=== PATIENT | female | born 1940 | race Caucasian/White ===

== ENCOUNTER 2018-08-12 16:06 | Inpatient (IN) ==
--- NOTE | 2018-08-12 16:56 | Emergency Department Note ---
Disposition Clinical Impression: Atrial flutter with rapid ventricular response Atrial flutter Qualifiers: Atrial flutter type: unspecified Qualified Code(s): I48.92 - Unspecified atrial flutter Disposition: Admitted As Inpatient Condition: Fair Time of Disposition: 19:32 Arrhythmia/Palpitations HPI - General Chief Complaint: ED Arrhythmia/Palpitations Stated Complaint: CP Time Seen by Provider: 08/12/18 16:13 Source: patient, family Mode of arrival: ambulatory Limitations: no limitations Nursing Notes Reviewed: Yes Vital Signs Reviewed: Yes - History of Present Illness HPI Narrative: 77 yo female with PMHx of intermittant a flutter, diabetes, HTN and cancer presents to emergency department with the experience of palpitations and weakness. Patient was recently admitted and had a full cardiac workup done in May of this year for a first-time experience of atrial flutter. Patient was chemically cardioverted with Cardizem and has been taking 360 mg daily of Cardizem home. She recently returned from a trip to [place] and Friday began experiencing some palpitations and feeling generally weak and fatigued. She was afraid that she was in atrial flutter again. She called her cardiologis t and was told to come into the emergency department for further workup. Patient denies chest pain, shortness of breath, abdominal pain, nausea and vomiting. She has not had any increased leg swelling or leg pain. - Related Data Home Medications Medication Instructions Recorded Confirmed Aspirin [Lo-Dose Aspirin EC] 81 mg PO DAILY 12/29/15 05/28/18 Cholecalciferol (D-3) [Vitamin D] 5,000 unit PO SUWEFR 12/29/15 05/28/18 Multivitamin [Multivitamins] 1 each PO DAILY 12/29/15 05/28/18 Biotin 1 mg PO DAILY 05/17/18 05/28/18 [place]-3/Dha/Epa/Fish Oil [Fish Oil 1,000 mg PO DAILY 05/17/18 05/28/18 Conc 1,000 mg Softgel] metFORMIN [Glucophage] 500 mg PO 1800 05/17/18 05/28/18 Warfarin [Coumadin] 2.5 mg PO 1800 05/28/18 05/28/18 Previous Rx's Medication Instructions Recorded Diltiazem CD (24hr) [Cardizem CD] 240 mg PO DAILY #30 cap.er.24h 05/01/18 Allergies Allergy/AdvReac Type Severity Reaction Status Date / Time Sulfa (Sulfonamide Allergy Difficulty Verified 05/28/18 13:43 Antibiotics) Breathing tape AdvReac Rash Uncoded 05/28/18 13:43 All systems ED: reviewed and negative except as stated. Review of Systems: As Per HPI Constitutional: Reports: weakness. Denies: fever, chills Cardiovascular: Reports: palpitations. Denies: chest pain, dyspnea on exertion, orthopnea, edema Respiratory: Denies: cough, dyspnea, wheezes Gastrointestinal: Denies: abdominal pain, nausea, vomiting Musculoskeletal: Denies: back pain, neck pain Integumentary: Denies: rash Neurological: Denies: headache Endocrine: Reports: fatigue Past Medical History - Past Medical History Attestation: Yes The following information was validated with the patient. Source: patient Medical history: Reports: atrial fibrillation, cancer, diabetes, hypertension Surgical history: Reports: cholecystectomy, hysterectomy Psychiatric history: Reports: no psych history RIGHT OF WAY CUTTER history: Reports: no RIGHT OF WAY CUTTER history - Social History Smoking Status: Never smoker Smokeless Tobacco Status: No Alcohol use: Reports: none Drug use: Reports: none Physical Exam - General Limitations: no limitations General appearance: alert, in no apparent distress - Head Head exam: atraumatic, normocephalic - Eye Eye exam: Present: normal appearance, EOMI - ENT ENT exam: normal exam, normal oropharynx - Neck Neck exam: Present: normal inspection. Absent: tenderness - Chest Chest inspection: Present: normal inspection. Absent: tenderness, rash - Respiratory Respiratory exam: Present: normal lung sounds bilaterally. Absent: wheezes - Cardiovascular Cardiovascular exam: Present: normal rhythm, tachycardia - Abdominal Exam Abdominal exam: Present: soft, Non-Tender. Absent: distention, guarding, rebound, rigidity - Extremities Exam Extremities exam: Present: normal inspection, pedal edema (1+ pedal edema keara aterally which started after being placed on Cardizem and is unchanged). Absent: tenderness - Neurological Exam Neurological exam: Present: alert, oriented X3 - Psychiatric Psychiatric exam: Present: normal affect, normal mood - Skin Skin exam: Present: warm, dry, intact Course Vital Signs Temperature 98.2 F 08/12/18 16:23 Pulse Rate 96 08/12/18 16:23 Respiratory Rate 18 06/26/19 16:23 Blood Pressure 146/102 06/26/19 16:23 O2 Sat by Pulse Oximetry 100 08/12/18 16:23 Temperature 98.2 F 08/12/18 16:23 Pulse Rate 104 08/12/18 17:17 Respiratory Rate 14 08/12/18 17:17 Blood Pressure 136/79 08/12/18 17:17 O2 Sat by Pulse Oximetry 98 08/12/18 17:17 Oxygen Delivery Oxygen Delivery Room Air Arrhythmia/Palpitations - [facility] Narrative Medical decision making narrative: Patient presents with complaints of fatigue and palpitations and is in atrial flutter. We will obtain an EKG, basic labs, troponin, chest x-ray and give the patient a bolus of Cardizem. Since she does take Coumadin as a flutter we will also check PT/INR. Spoke with Dr. Guerin who states that it is unlikely that the patient will cardiovert all she is here and she will likely only be rate controlled. If she does cardiovert he states it is acceptable for her to be discharged home and to follow-up with cardiology outpatient. Assuming she does not cardiovert we should just attempt rate control and admitted to the hospital until she is able to convert on her own or they can start her on other medications such as labetalol 2 help her convert. Patient is in no acute distress at this time. An IV bolus of Cardizem will be ordered and the patient will then be started on a Cardizem drip. 1930 - patient's heart rate has not converted while being on the Cardizem drip. All other lab work and her chest x-ray are within normal limits. Patient has been accepted by the hospitalist for further management of her atrial flutter. Cardiology will be consulted. - Medical Records Medical records reviewed: Yes I reviewed the patient's medical records. - Lab Data Lab results reviewed: Yes I reviewed the patient's lab results. Result diagrams: 08/13/18 06:26 08/13/18 06:26 Lab Results 08/12/18 08/12/18 08/12/18 Range/Units 16:45 16:45 16:45 WBC 9.4 (4.3-11.1) K/mcL RBC 4.74 (3.82-4.97) M/mcL Hgb 13.5 (11.5-15.4) g/dL Hct 41.5 (35.3-44.9) % MCV 87.6 (83.0-100.0) fL MCH 28.5 (28.0-33.3) pg MCHC 32.5 (31.6-35.5) g/dL RDW 13.6 (11.5-14.5) % Plt Count 239 (140-400) K/mcL MPV 10.4 (9.4-12.4) fL Immature Gran % 0.3 (0-4) % Seg Neutrophils % 56.8 % Lymphocytes % 33.8 % Monocytes % 7.7 % Eosinophils % 0.8 % Basophils % 0.6 % Neutrophils # 5.4 (1.6-8.9) K/mcL Lymphocytes # 3.2 (0.6-4.6) K/mcL Monocytes # 0.7 (0.0-1.3) K/mcL Eosinophils # 0.1 (0.0-0.6) K/mcL Basophils # 0.1 (0.0-0.2) K/mcL PT (9.4-12.1) Seconds INR Sodium 138 (136-145) mEq/L Potassium 4.1 (3.5-5.1) mEq/L Chloride 102 (98-107) mEq/L Carbon Dioxide 24 (23-29) mEq/L BUN 19 (8-23) mg/dL Creatinine 0.86 (0.60-1.20) mg/dL Est GFR ( Amer) > 60 (> 60) Est GFR (Non-Af Amer) > 60 (> 60) BUN/Creatinine Ratio 22 (6-26) Glucose 182 H (70-105) mg/dL Calculated Osmolality 293 (280-300) Calcium 9.6 (8.6-10.3) mg/dL Magnesium 1.9 (1.6-2.6) mg/dL Troponin I < 0.03 (< 0.04) ng/mL B-Natriuretic Peptide 65 (Less than 100) pg/mL TSH 1.991 (0.340-5.600) mcIU/mL 08/12/18 Range/Units 16:45 WBC (4.3-11.1) K/mcL RBC (3.82-4.97) M/mcL Hgb (11.5-15.4) g/dL Hct (35.3-44.9) % MCV (83.0-100.0) fL MCH (28.0-33.3) pg MCHC (31.6-35.5) g/dL RDW (11.5-14.5) % Plt Count (140-400) K/mcL MPV (9.4-12.4) fL Immature Gran % (0-4) % Seg Neutrophils % % Lymphocytes % % Monocytes % % Eosinophils % % Basophils % % Neutrophils # (1.6-8.9) K/mcL Lymphocytes # (0.6-4.6) K/mcL Monocytes # (0.0-1.3) K/mcL Eosinophils # (0.0-0.6) K/mcL Basophils # (0.0-0.2) K/mcL PT 21.2 H (9.4-12.1) Seconds INR 1.9 Sodium (136-145) mEq/L Potassium (3.5-5.1) mEq/L Chloride (98-107) mEq/L Carbon Dioxide (23-29) mEq/L BUN (8-23) mg/dL Creatinine (0.60-1.20) mg/dL Est GFR ( Amer) (> 60) Est GFR (Non-Af Amer) (> 60) BUN/Creatinine Ratio (6-26) Glucose (70-105) mg/dL Calculated Osmolality (280-300) Calcium (8.6-10.3) mg/dL Magnesium (1.6-2.6) mg/dL Troponin I (< 0.04) ng/mL B-Natriuretic Peptide (Less than 100) pg/mL TSH (0.340-5.600) mcIU/mL - Radiology Data Radiology results reviewed: Yes I reviewed the patient's radiology results. - EKG Data EKG attestation: Yes I reviewed and interpreted this EKG. EKG results narrative: EKG obtained at 16:18 on 08/12/2018 Heart rate 10 1 bpm, QRS duration 164, QTC 46, QTC 522 Atrial flutter in 3-1 block pattern. No signs of ST segment elevations. There are ST segment depressions which are likely secondary to the flutter waves. No other signs of acute abnormalities. Attestation Statement - Attestation Attestation: I have seen this patient with the resident physician, I have personally evaluated this patient. I had reviewed the chart and document dictation by the resident physician and aM in agreement with the information documented by the resident physician. Please see documentation by the resident physician for complete chart including past medical history, family medical history, review of systems, current history and physical and laboratory and imaging studies. I was present for all procedures, provided direct supervision for all procedures, was present for the entirety of all procedures and provided direct guidance during the procedures. Please see documentation by the resident physician for any procedures performed. I have reviewed all interpretations of EKGs, and reviewed all EKGs performed on patient's as well. I have also reviewed reports of imaging as provided by radiology.
--- NOTE | 2018-08-12 16:59 | Emergency Department Note ---
Disposition Clinical Impression: Atrial flutter, Atrial flutter with rapid ventricular response Disposition: Still a Patient Condition: Fair Forms: ED Satisfaction Letter Time of Disposition: 17:01 Arrhythmia/Palpitations HPI - General Chief Complaint: ED Arrhythmia/Palpitations Stated Complaint: CP Time Seen by Provider: 08/12/18 16:13 Source: patient, family Limitations: no limitations Nursing Notes Reviewed: Yes Vital Signs Reviewed: Yes - Related Data Home Medications Medication Instructions Recorded Confirmed Aspirin [Lo-Dose Aspirin EC] 81 mg PO DAILY 12/29/15 05/28/18 Cholecalciferol (D-3) [Vitamin D] 5,000 unit PO SUWEFR 12/29/15 05/28/18 Multivitamin [Multivitamins] 1 each PO DAILY 12/29/15 05/28/18 Biotin 1 mg PO DAILY 05/17/18 05/28/18 [place]-3/Dha/Epa/Fish Oil [Fish Oil 1,000 mg PO DAILY 05/17/18 05/28/18 Conc 1,000 mg Softgel] metFORMIN [Glucophage] 500 mg PO 1800 05/17/18 05/28/18 Warfarin [Coumadin] 2.5 mg PO 1800 05/28/18 05/28/18 Previous Rx's Medication Instructions Recorded Diltiazem CD (24hr) [Cardizem CD] 240 mg PO DAILY #30 cap.er.24h 05/01/18 Allergies Allergy/AdvReac Type Severity Reaction Status Date / Time Sulfa (Sulfonamide Allergy Difficulty Verified 05/28/18 13:43 Antibiotics) Breathing tape AdvReac Rash Uncoded 05/28/18 13:43 Past Medical History - Past Medical History Medical history: Reports: atrial fibrillation, cancer, diabetes, hypertension Surgical history: Reports: cholecystectomy, hysterectomy Psychiatric history: Reports: no psych history CANCER GENETICS ASSISTANT history: Reports: no CANCER GENETICS ASSISTANT history - Social History Smoking Status: Never smoker Smokeless Tobacco Status: No Alcohol use: Reports: none Drug use: Reports: none Physical Exam - General Limitations: no limitations General appearance: alert, in no apparent distress Course Vital Signs Temperature 98.2 F 08/12/18 16:23 Pulse Rate 96 08/12/18 16:23 Respiratory Rate 18 08/12/18 16:23 Blood Pressure 146/102 08/12/18 16:23 O2 Sat by Pulse Oximetry 100 08/12/18 16:23 Temperature 98.2 F 08/12/18 16:23 Pulse Rate 96 08/12/18 16:23 Respiratory Rate 18 08/12/18 16:23 Blood Pressure 146/102 08/12/18 16:23 O2 Sat by Pulse Oximetry 100 08/12/18 16:23 Oxygen Delivery Oxygen Delivery Room Air Attestation Statement - Attestation Attestation: I have seen this patient with the resident physician, I have personally evaluated this patient. I had reviewed the chart and document dictation by the resident physician and aM in agreement with the information documented by the resident physician. Please see documentation by the resident physician for complete chart including past medical history, family medical history, review of systems, current history and physical and laboratory and imaging studies. I was present for all procedures, provided direct supervision for all procedures, was present for the entirety of all procedures and provided direct guidance during the procedures. Please see documentation by the resident physician for any procedures performed. I have reviewed all interpretations of EKGs, and reviewed all EKGs performed on patient's as well. I have also reviewed reports of imaging as provided by radiology. Patient presented emergency department with chief complaint of palpitations and some exertional fatigue. The patient states this feels just like when she was admitted about 2 months ago with new diagnosis of atrial flutter. She states that she had received medications from outside facility that actually had c onverted her by the time she arrived at this facility 2 months ago she was admitted overnight, placed on oral medications, and has been doing well since that time although reports that she did have a little bit of bilateral lower extremity swelling which started after being laced on diltiazem, for which she was placed on Lasix. She states that the swelling is no different. She states that she was on vacation last week and things seemed okay when they came home on Friday she noticed that she was feeling some palpitations and just felt a little bit fatigued, she thought maybe she had just overdone it on vacation and was just tired but it continued over the weekend and she decided to come to the emergency department. She states she has maybe a little bit of discomfort in her chest but no pain no pressure no discomfort radiating to her left shoulder no diaphoresis, no shortness of breath no headache no neck pain or jaw pain no abdominal pain nausea vomiting or diarrhea. She is on Coumadin she has not noticed any black or bloody stool, no blood in her urine. No history of blood clots. She reports that her INR was last checked 2 weeks ago just prior to going on vacation which was therapeutic at that time. Upon presentation she is alert oriented 3 and in no acute distress, monitor and EKG confirms atrial flutter, heart rate ranging right around 100, with some variation up to 1:15 on the monitor. No evidence of ST elevation or ST depression there are some lateral T-wave inversions which is somewhat limited by the fact that there are flutter waves associated with this. But no evidence of acute ST segment elevation myocardial infarction, and EKG is a flutter, with heart rate of 101 on the EKG as interpreted by myself. Basic laboratory studies were ordered coags were ordered, cardiac enzymes were ordered. We contacted cardiology upon presentation as the patient is already anticoagulated, and wanted to discuss consideration of potential medications for chemical cardioversion, they requested that the patient be placed on diltiazem, if she happened to convert while on diltiazem IV, she could potentially be discharged home, however they feel the patient will likely require admission, and they will likely have to consider other medications for rhythm management as an inpatient. Patient has already had aspirin and Coumadin today. Diltiazem drip was initiated for rate control of atrial flutter although her heart rate but primarily was right around 105 even before this. Patient will be admitted pending workup here in the emergency department unless she happens to cardiovert.
[2018-08-12 17:14] LABS: Basophils # 0.1 K/mcL (0.0-0.2); Basophils % 0.6 %; Eosinophils # 0.1 K/mcL (0.0-0.6); Eosinophils % 0.8 %; Hematocrit 41.5 % (35.3-44.9); Hemoglobin 13.5 g/dL (11.5-15.4); Immature Granulocytes % 0.3 % (0-4); Lymphocytes # 3.2 K/mcL (0.6-4.6); Lymphocytes % 33.8 %; Mean Corpuscular HGB Conc 32.5 g/dL (31.6-35.5); Mean Corpuscular Hemoglobin 28.5 pg (28.0-33.3); Mean Corpuscular Volume 87.6 fL (83.0-100.0); Mean Platelet Volume 10.4 fL (9.4-12.4); Monocytes # 0.7 K/mcL (0.0-1.3); Monocytes % 7.7 %; Neutrophils # 5.4 K/mcL (1.6-8.9); Platelet Count 239 K/mcL (140-400); Red Blood Count 4.74 M/mcL (3.82-4.97); Red Cell Distribution Width 13.6 % (11.5-14.5); Segmented Neutrophils % 56.8 %; White Blood Count 9.4 K/mcL (4.3-11.1)
[2018-08-12 17:22] LABS: INR 1.9; Prothrombin Time 21.2 Seconds (9.4-12.1)
[2018-08-12 17:35] LABS: BUN/Creatinine Ratio 22 (6-26); Blood Urea Nitrogen 19 mg/dL (8-23); Calcium 9.6 mg/dL (8.6-10.3); Carbon Dioxide 24 mEq/L (23-29); Chloride 102 mEq/L (98-107); Glucose 182 mg/dL (70-105); Magnesium 1.9 mg/dL (1.6-2.6); Osmolality,Calculated 293 (280-300); Potassium 4.1 mEq/L (3.5-5.1); Sodium 138 mEq/L (136-145); Troponin I < 0.03 ng/mL (< 0.04); eGFR For African Americans > 60 (> 60); eGFR For Non-African Americans > 60 (> 60)
[2018-08-12 17:48] LABS: Thyroid Stimulating Hormone 1.991 mcIU/mL (0.340-5.600)
[2018-08-12] MEDS ORDERED: Naloxone 0.4 MG/ML INJ IVP PRN (20:51)
[2018-08-12] MEDS ORDERED: Dextrose Gel 15 GM/37.5 ML TUBE PO PRN ×2 (22:33)
[2018-08-12] MEDS ORDERED: *HR* Dextrose 50 % in Water (Syg) 50 ML SYRINGE IVP PRN (22:33)
[2018-08-12] MEDS ORDERED: D5% in Water 1,000 ML IVC PRN (22:33)
--- NOTE | 2018-08-12 22:33 | Internal Med History&Physical ---
Date of Encounter: 08/12/18 Time of Encounter: 20:31 Internal Medicine - H&P: HPI Chief complaint: Atrial flutter Admitted From: Emergency Dept Plans for Post Hospital Care: Home History of present illness: Ms. Schaffer is a 77 year old female Patient presented to the ER with palpitations and feeling weak for 4 days. She says that she was diagnosed with atrial flutter a few months ago at that time was started on diltiazem. She takes 360 mg daily. She is also started on warfarin at that time for anticoagulation. She had gone to [place] with her family and spent some time on the beach. On the return trip she began having some palpitations and feeling weak. She did notify her septic tank service technician to recommended she go to the emergency room for further workup. In the emergency room patient's initial vital signs: Temperature 98.2, pulse 96, respiratory rate 18, blood pressure 146/102, O2 saturation 100 CBC within normal limits BMP notable for glucose of 182. INR 1.9 Initial troponin undetectable BNP 65 TSH 1.991 Chest x-ray showed persistent opacification at the left lung base likely scarring. No acute abnormalities EKG: Heart rate [address] ischemic changes, QTC 522 Emergency department called septic tank service technician Dr. Brennan. He recommended rate controlling the patient. The patient received an IV bolus of Cardizem and was put on a Cardizem drip. She was admitted to the hospital for further management. Upon my evaluation, patient is resting comfortably in the ER bed in no acute dis tress. She denies chest pain, abdominal pain, nausea, vomiting, diarrhea, constipation, dizziness and vision changes. She does remain feeling somewhat weak however. She is a full code. Past Med Surg Social Fam HX - Past Medical History Medical history: atrial fibrillation, cancer, diabetes, hypertension Additional medical history: a flutter Psychiatric history: no psych history - Past Surgical History Surgical History: cholecystectomy, hysterectomy Additional surgical history: R masectomy; bladder sx, hernia repair - Social History Smoking Status: Never smoker Smokeless Tobacco Status: No Alcohol use: none Drug use: none - Family History Mother Living Status: Age at : 92 Hx Family Cardiac Disorders: Yes (htn, a fib) Hx Family Neurologic Disorders: Yes (cva) Father Living Status: Hx Family Cardiac Disorders: Yes (chf) Internal Medicine - H&P: Meds Aspirin [Lo-Dose Aspirin EC] 81 mg PO DAILY 12/29/15 [History] Cholecalciferol (D-3) [Vitamin D] 5,000 unit PO SUWEFR 12/29/15 [History] Multivitamin [Multivitamins] 1 each PO DAILY 12/29/15 [History] Diltiazem CD (24hr) [Cardizem CD] 240 mg PO DAILY #30 cap.er.24h 05/01/18 [Rx] Biotin 1 mg PO DAILY 05/17/18 [History] [place]-3/Dha/Epa/Fish Oil [Fish Oil Conc 1,000 mg Softgel] 1,000 mg PO DAILY 05/17/18 [History] metFORMIN [Glucophage] 500 mg PO 1800 05/17/18 [History] Warfarin [Coumadin] 2.5 mg PO 1800 05/28/18 [History] Allergy/AdvReac Type Severity Reaction Status Date / Time Sulfa (Sulfonamide Allergy Difficulty Verified 05/28/18 13:43 Antibiotics) Breathing tape AdvReac Rash Uncoded 05/28/18 13:43 All Systems PM: A 10-system review of systems was performed and is negative for pertinent findings except as documented above in the HPI. - Constitutional Vitals: Temp Pulse Resp BP Pulse Ox 97.9 F 106 17 155/82 96 08/12/18 21:10 08/12/18 21:10 08/12/18 21:10 08/12/18 21:10 08/12/18 21:10 General appearance: Present: cooperative, A&O X 3, pleasant, no acute distress, answers questions appropriately Exam: - - Head Head exam: Present: normal inspection - Eye Eye exam: Present: EOMI, normal appearance - Respiratory Respiratory exam: Present: CTAB. Absent: rales, respiratory distress, rhonchi, wheezes - Cardiovascular Cardiovascular exam: Present: irregular rhythm, tachycardia. Absent: diastolic murmur, systolic murmur - GI/Abdominal GI/Abdominal exam: Present: hernia, normal bowel sounds, soft. Absent: tenderness - Extremities Exam Extremities exam: Present: pedal edema, warm, radial pulses palpable and symmetrical. Absent: tenderness Additional comments: 2+ pitting edema bilaterally - Neurological Exam Neurological exam: Present: no focal deficits, strengths equal and symetr throughout. Absent: motor sensory deficit, facial droop, speech deficit - Skin Skin exam: Present: dry, normal color, warm Internal Med - H&P Results - Labs CBC & Chem 7: 08/12/18 16:45 08/12/18 16:45 Labs: Short CBC 08/12/18 Range/Units 16:45 WBC 9.4 (4.3-11.1) K/mcL Hgb 13.5 (11.5-15.4) g/dL Hct 41.5 (35.3-44.9) % Plt Count 239 (140-400) K/mcL Neutrophils # 5.4 (1.6-8.9) K/mcL BMP 08/12/18 16:45 Sodium 138 Potassium 4.1 Chloride 102 Carbon Dioxide 24 BUN 19 Creatinine 0.86 Glucose 182 H Calcium 9.6 Cardiac Enzymes 08/12/18 Range/Units 16:45 Troponin I < 0.03 (< 0.04) ng/mL - Impressions ITS Impressions Chest X-Ray 08/12/18 16:13 IMPRESSION: Persistent opacification at the left lung base most likely representing scarring given the appearance of the CT done 05/01/2018. No acute abnormalities seen in the chest D/ / Amanuel Emery MD / Amanuel Emery MD Interpreting Provider: Amanuel Emery MD - Assessment and Plan (1) Atrial flutter Current Visit: Yes Status: Acute Assessment and plan: As seen on patient's EKG. Patient has a history of atrial fibrillation/flutter. She has been on Cardizem at home as well as warfarin. She was started on a Cardizem drip in the ER. Cardiology will consult on the patient in the morning. Follow-up cardiology recommendations Continue Cardizem drip Monitor blood pressures Cardiac telemetry Qualifiers: Atrial flutter type: unspecified Qualified Code(s): I48.92 - Unspecified atrial flutter (2) Diabetes Current Visit: No Status: Acute Assessment and plan: Patient is not an insulin dependent diabetic Monitor sugars ACHS Diabetic diet Low dose insulin sliding scale as needed Hold home meds. Qualifiers: Diabetes mellitus type: type 2 Diabetes mellitus long-term insulin use: without rn informatics use Diabetes mellitus complication status: with hyperglycemia Qualified Code(s): E11.65 - Type 2 diabetes mellitus with hyperglycemia (3) Weakness Current Visit: Yes Status: Acute Assessment and plan: Likely secondary to atrial flutter and arrhythmias. Managing atrial flutter as above (4) DVT prophylaxis Current Visit: No Status: Acute Assessment and plan: Continue warfarin Pharmacy to dose INR in the morning - Time Spent With Patient Total time spent is greater than 50% in coordination of care (as documented) at patient's floor/unit and/or counseling patient: Greater than 35 minutes
[2018-08-12] MEDS ORDERED: *HR* Warfarin 2.5 MG TABLET PO ONE (23:30)
[2018-08-13 06:51] LABS: Hematocrit 38.1 % (35.3-44.9); Hemoglobin 12.4 g/dL (11.5-15.4); Mean Corpuscular HGB Conc 32.5 g/dL (31.6-35.5); Mean Corpuscular Hemoglobin 28.8 pg (28.0-33.3); Mean Corpuscular Volume 88.6 fL (83.0-100.0); Mean Platelet Volume 9.9 fL (9.4-12.4); Platelet Count 224 K/mcL (140-400); Red Cell Distribution Width 13.7 % (11.5-14.5); White Blood Count 8.8 K/mcL (4.3-11.1)
[2018-08-13 06:55] LABS: INR 1.8; Prothrombin Time 20.1 Seconds (9.4-12.1)
[2018-08-13 08:31] LABS: BUN/Creatinine Ratio 18 (6-26); Blood Urea Nitrogen 13 mg/dL (8-23); Calcium 8.6 mg/dL (8.6-10.3); Carbon Dioxide 21 mEq/L (23-29); Chloride 106 mEq/L (98-107); Glucose 195 mg/dL (70-105); Osmolality,Calculated 291 (280-300); Potassium 4.1 mEq/L (3.5-5.1); Sodium 138 mEq/L (136-145); eGFR For African Americans > 60 (> 60); eGFR For Non-African Americans > 60 (> 60)
[2018-08-13] MEDS: Insulin LISPRO 300 UNITS/3 ML VIAL SQ SCH ×3 (08:58→15:56)
[2018-08-13] MEDS ORDERED: Furosemide 20 MG/2 ML VIAL IVP ONE (13:25)
--- NOTE | 2018-08-13 13:28 | Event Note ---
Date of Encounter: 08/13/18 Time of Encounter: 08:00 Patient was seen and examined at bedside. Heart rate remains above 100 about 110. She reports that she is compliant with all her home medications. Resection went on medication and was going up up and down the stairs and plantar palpitations due to increased physical activity. Denies chest pain however does report that her lower extremities are more swollen than normal. Vital signs reviewed No acute distress, speaks in full sentences Irregularly irregular S1 and S2 could not appreciate any murmurs To auscultation bilaterally Abdomen is obese, has hernia in the right lower abdomen, bowel sounds are positive, soft nontender +2 edema of the lower extremities up to mid shins Assessment and plan Atrial fibrillation with rapid ventricular rate Acute on chronic heart failure preserved ejection fraction most likely secondary to Afib RVR Subtherapeutic INR TSH within normal limit BNP was 65, has LE edema Troponin was negative We will give one dose of IV Lasix Continue with Coumadin pharmacy to dose Cardiology was consulted will follow recommendations Repeat echo ordered continue cardijuan carlos corral
--- NOTE | 2018-08-13 13:38 | Cardiology Consult Note ---
<Xavier Dolan R - Last Filed: 08/13/18 15:27> Date of Encounter: 08/13/18 Time of Encounter: 13:35 Assessment and Plan (1) Atrial flutter with rapid ventricular response Current Visit: Yes Status: Acute Per Cardiology: Recent diagnosis of atrial flutter and afib 04/2017 in setting of UTI. Currently a flutter with RVR fluctuating 90s to 110s on Cardizem drip at 10 mg per hour. Systolic blood pressure stable. Will resume home dose of Cardizem CD 360 mg by mouth daily. Will add Lopressor 12.5mg by mouth twice a day. Will attempt to wean IV Cardizem drip to off. Echo from April 2018 EF 55%, mild diastolic dysfunction, no significant valvular dysfunction, NSWMA, normal RA and LA size. TSH, labs ok, trop negative. Regarding long-term anticoagulation, now back on Coumadin and followed by [facility]-- last INRs 6/14 2.3, 6/4 1.9, and 5/14 1.9. Discussed and reviewed with Dr. Hernandez, will consider possible CRYSTAL DC cardioversion tomorrow if remains aflutter. Will consider ST as outpatient. Discussion w patient/family: The assessment and plan as outlined above was discussed with the patient and/or family members who expressed understanding and agreement. All questions were answered. Thank you for involving us in the care of your patient. Please call with any questions. History of Present Illness Consult date: 08/13/18 Consult reason: Afib RVR Chief complaint: Fatigue History of present illness: Ms. Schaffer is a 77 year old female with a relevant past medical history of HTN, DM 2, history of breast cancer with right mastectomy, recent hospital stay April 2017 with hematuria and UTI and found to have paroxysmal atrial flutter and PAF. Last seen by myself and cardiology office May 2017 for that hospital follow- up. At that appointment patient was now off Coumadin due to recurrent hematuria from ER visit. Was sinus rhythm and Cardizem increased for heart rate and blood pressure optimization. Cardiology consult today for atrial flutter with RVR. Patient seen with family. Reports recently returned from vacation over the past one week and has noticed overall increase in fatigue with shortness of breath with exertion. She reports some midsternal chest pressure yesterday evening at rest that lasted a few minutes and subsided. She denies any dizziness, syncope, falls. She reports has seen urology and now resumed back on Coumadin for the past 1 month being followed by [facility]. Denies any recent infectious process. Denies any fever, chills, nausea, vomiting, diarrhea. Denies any current active bleeding or blood loss. Reports medication compliance. Denies any history of snoring or concerns of sleep apnea. Past Med Surg Social Fam HX - Past Medical History Attestation: Yes The following information was validated with the patient. Source: patient, old records reviewed, obtained from family Medical history: atrial fibrillation, cancer, diabetes, hypertension Additional medical history: a flutter Psychiatric history: no psych history - Past Surgical History Surgical History: cholecystectomy, hysterectomy Additional surgical history: R masectomy with lymphnode removal ; bladder sx, hernia repair, sunitha - Social History Smoking Status: Never smoker Smokeless Tobacco Status: No Alcohol use: none Drug use: none - Family History Mother Living Status: Age at : 92 Hx Family Cardiac Disorders: Yes (htn, a fib) Hx Family Neurologic Disorders: Yes (cva) Father Living Status: Hx Family Cardiac Disorders: Yes (chf) Medications and Allergies Aspirin [Lo-Dose Aspirin EC] 81 mg PO DAILY 12/29/15 [History] Cholecalciferol (D-3) [Vitamin D] 5,000 unit PO SUWEFR 12/29/15 [History] Multivitamin [Multivitamins] 1 each PO DAILY 12/29/15 [History] Biotin 1 mg PO DAILY 05/17/18 [History] [place]-3/Dha/Epa/Fish Oil [Fish Oil Conc 1,000 mg Softgel] 1,000 mg PO DAILY 04/19 03/07 [History] Warfarin [Coumadin] 2.5 mg PO SUMOTUTHFRSA 05/28/18 [History] Furosemide [Lasix] 20 mg PO DAILY 08/13/18 [History] Metformin HCl [Metformin ER Gastric] 500 mg PO 1800 08/13/18 [History] Warfarin Sodium 3.75 mg PO WE 08/13/18 [History] dilTIAZem HCl [Diltiazem 24Hr Cd] 360 mg PO DAILY 08/13/18 [History] Allergy/AdvReac Type Severity Reaction Status Date / Time Sulfa (Sulfonamide Allergy See Verified 08/13/18 13:40 Antibiotics) Comments tape AdvReac Rash Uncoded 05/28/18 13:43 All Systems Review: The remainder of the systems were reviewed and are negative - Constitutional Constitutional: fatigue - Cardiovascular Cardiovascular: as per HPI, chest pain at rest, dyspnea at rest, palpitations Physical Examination Vital Signs, Last 4 Hours Temp Pulse Resp BP 08/13/18 11:28 97.8 F 85 16 128/87 General: Conversant, No Apparent Distress HEENT: Atraumatic, Normocephaly, Mucus Membranes Moist Neck: No JVD, Normal carotid pulses Cardiac: Normal S1 and S2, No Murmur, Other (Irregularly irregular) Lungs: Normal Breath Sounds, No Wheeze, Rales, Rhonchi Neuro: Alert and responsive, No focal deficits noted Abdomen: Soft, Non-Tender Skin: No rashes noted on visualized skin Musculoskeletal: No Chest Wall Tenderness Extremities: No Clubbing, No Cyanosis, Normal Pulses, Other (+1 pitting edema to bilateral lower extremities) Results 08/13/18 06:26 08/13/18 06:26 Lab Results Laboratory Tests 05/01/18 08/12/18 08/12/18 11:20 16:45 16:45 Hgb 14.7 D Hct 45.6 H INR Creatinine Est GFR (Non-Af Amer) Magnesium 1.9 Troponin I < 0.03 B-Natriuretic Peptide 65 TSH 1.991 08/13/18 08/13/18 08/13/18 06:26 06:26 06:26 Hgb 12.4 Hct 38.1 INR 1.8 Creatinine 0.74 Est GFR (Non-Af Amer) > 60 Magnesium Troponin I B-Natriuretic Peptide TSH ITS Impressions Chest X-Ray 08/12/18 16:13 IMPRESSION: Persistent opacification at the left lung base most likely representing scarring given the appearance of the CT done 05/01/2018. No acute abnormalities seen in the chest D/ / Amanuel Emery MD / Amanuel Emery MD Interpreting Provider: Amanuel Emery MD Active Medications Dextrose/Water (Dextrose 50% (Syg)) 25 ml IVP AD PRN PRN Reason: Hypoglycemia Stop: 12/26/19 22:34 Furosemide (Lasix) 20 mg IVP ONCE ONE Stop: 08/13/18 13:26 Glucagon (Glucagen) 1 mg IM ONCE PRN PRN Reason: Hypoglycemia Stop: 02/11/19 22:34 Glucose (Gluctose) 15 gm PO ONCE PRN PRN Reason: Hypoglycemia Stop: 02/11/19 22:34 Glucose (Gluctose) 30 gm PO ONCE PRN PRN Reason: Hypoglycemia Stop: 02/11/19 22:34 Diltiazem HCl 50 mg/ Sodium (Chloride) 50 mls @ 5 mls/hr IVC CONT JEN; Protocol Stop: 02/11/19 16:31 Last Infusion: 08/13/18 09:09 Dose: 10 mg/hr, 10 mls/hr Documented by: Dextrose (Dextrose 5%) 1,000 mls @ 100 mls/hr IVC .Q10H PRN PRN Reason: HYPOGLYCEMIA Stop: 02/11/19 22:34 Insulin Human Lispro (Humalog) 0 units SQ HS JEN; Protocol Stop: 02/12/19 21:01 Insulin Human Lispro (Humalog) 0 units SQ TIDAC JEN; Protocol Stop: 02/12/19 07:31 Last Admin: 08/13/18 11:34 Dose: 4 units Documented by: Naloxone HCl (Narcan) 0.4 mg IVP Q2MPRN PRN PRN Reason: SEE COMMENTS Stop: 02/11/19 20:52 Warfarin Sodium (Coumadin Perpt) 0 each PO DAILY@1800 PRN PRN Reason: SEE COMMENTS Stop: 02/12/19 18:01 - Imaging and Cardiology Echo: report reviewed - EKG Interpretation EKG results cardiology: personally reviewed (Atrial flutter with RVR) Consult Discharge Plan - Plan Referrals: Purvi Rocha [employer]IGATOR [employer] [Primary Care Provider] - < - Last Filed: 08/13/18 21:57> Date of Encounter: 08/13/18 - Attending Attestation I have personally performed a face to face evaluation on this patient. I have reviewed and agree with the documented findings and care plan as documented by the [employer]. History and Exam by me shows 77 y/o pleasant female admitted with aflutter with RVR. Sub therapeutic INR couple of times in the last month. Recommend CRYSTAL/ DCCV Thanks, Kehinde Hernandez MD FAC Assessment and Plan Discussion w patient/family: The assessment and plan as outlined above was discussed with the patient and/or family members who expressed understanding and agreement. All questions were answered. Thank you for involving us in the care of your patient. Please call with any questions. History of Present Illness History of present illness: Ms. Schaffer is a 77 year old female All Systems Review: The remainder of the systems were reviewed and are negative Physical Examination Vital Signs, Last 4 Hours Temp Pulse Resp BP Pulse Ox 08/13/18 20:31 98.2 F 91 16 121/77 97 Results 08/13/18 06:26 08/13/18 06:26 Lab Results 08/13/18 08/13/18 08/13/18 06:26 06:26 06:26 WBC 8.8 Hgb 12.4 Hct 38.1 Plt Count 224 INR 1.8 Sodium 138 Potassium 4.1 Chloride 106 Carbon Dioxide 21 L BUN 13 Creatinine 0.74 Glucose 195 H Calcium 8.6
[2018-08-13] MEDS: Diltiazem CD (24hr) 180 MG CAPSULE PO SCH (15:55)
--- NOTE | 2018-08-13 16:04 | Electrocardiograph Report ---
[place] [id number] Test Date: 2018-08-12 Pat Name: Shyann Schaffer Department: EXAM10 Room: 2N1 Gender: F Medical Biller: : 1940 Requested By: Mali Basilio Order Number: [id number] Reading MD: Krishan Brennan Measurements Intervals [place] Rate: 101 P: NC: QRS: 74 QRSD: 164 T: 216 QT: 406 QTc: 522 Interpretive Statements Atrial flutter Possible anteroseptal infarct, old Electronically Signed On 08-13-2018 16:02:13 EDT by Krishan Brennan
[2018-08-13] MEDS ORDERED: *HR* Warfarin 2.5 MG TABLET PO ONE (18:00)
[2018-08-13] MEDS ORDERED: Warfarin perPT PO PRN (18:00)
[2018-08-13] MEDS ORDERED: Insulin LISPRO 300 UNITS/3 ML VIAL SQ SCH (21:00)
[2018-08-14 07:48] LABS: Prothrombin Time 22.7 Seconds (9.4-12.1)
[2018-08-14] MEDS: Insulin LISPRO 300 UNITS/3 ML VIAL SQ SCH ×3 (08:06→16:46)
[2018-08-14] MEDS: Diltiazem CD (24hr) 180 MG CAPSULE PO SCH (08:52)
--- NOTE | 2018-08-14 08:58 | Event Note ---
Date of Encounter: 08/14/18 Time of Encounter: 09:00 - Cardiology Event Note Remains atrial flutter in the 70s to 80s. Cardizem drip at 2.5 mg per hour-- now discontinued. Discussed and reviewed with Dr. Hernandez, plan for CRYSTAL/DC cardioversion today. Patient and verbalized understanding and agreed w ith plan. All questions answered. Discussed with primary service.
[2018-08-14] MEDS ORDERED: NON-FORMULARY MEDICATION 1 EACH EACH (Biotin 1 MG) PO SCH (09:00)
[2018-08-14] MEDS ORDERED: FISH OIL PO SCH (09:00)
[2018-08-14] MEDS ORDERED: Multivit/Ca/Min/Fe/FA 1 TAB TABLET PO SCH (09:00)
[2018-08-14] MEDS ORDERED: Furosemide 20 MG TABLET PO SCH (09:00)
[2018-08-14] MEDS ORDERED: EPA PO SCH (09:00)
[2018-08-14] MEDS ORDERED: OMEGA PO SCH (09:00)
[2018-08-14] MEDS ORDERED: [UNRECOGNIZED DRUG - OTHER] PO SCH (09:00)
[2018-08-14] MEDS ORDERED: Aspirin Enteric Coated 81 MG Tablet PO SCH (09:00)
[2018-08-14] MEDS ORDERED: Cholecalciferol (D-3) 1,000 UNIT TABLET PO SCH (09:00)
[2018-08-14] MEDS ORDERED: DHA PO SCH (09:00)
[2018-08-14] MEDS ORDERED: Lidocaine Viscous Oral Soln 15 ML SOLUTION MM PRN (10:54)
[2018-08-14] MEDS ORDERED: 0.9 % Sodium Chloride 500 ML IVC ONE (10:55)
[2018-08-14] MEDS: *HR* Midazolam HCl 5 MG/5 ML VIAL IVP PRN ×3 (11:40→12:03)
[2018-08-14] MEDS: *HR* FentaNYL (PF) 100 MCG/2 ML VIAL IVP PRN ×2 (11:40→12:00)
--- NOTE | 2018-08-14 12:43 | Event Note ---
Date of Encounter: 08/14/18 Time of Encounter: 12:40 - Cardiology Event Note Per Dr. Valle, patient cardioverted to SR with one shock of 50J. Continue with CCB and BB. Continue AC. Cardiology signing off, re-consult PRN, f/u arranged. Anticipate DC home today. Patient verbalized understanding and agreed with plan.
--- NOTE | 2018-08-14 12:54 | Discharge Summary ---
- NOTES TO OUTPATIENT PROVIDER Notes to Outpatient Provider: follow up with cardiology. follow up with coumadin clinic Orders not resulted at time of discharge: Pending orders 08/14/18 09:41 EKG [ECG 12 lead ECG] [ECG] Stat EKG [ECG 12 lead ECG] [ECG] Stat 08/15/18 04:00 PT/INR [Prothrombin Time INR] [COAG] AM 0400 08/16/18 04:00 PT/INR [Prothrombin Time INR] [COAG] AM 0400 08/17/18 04:00 PT/INR [Prothrombin Time INR] [COAG] AM 040 Date of Encounter: 08/14/18 Time of Encounter: 12:50 - Discharge Diagnosis (1) Atrial flutter Priority: Primary Status: Acute Qualifiers: Atrial flutter type: unspecified Qualified Code(s): I48.92 - Unspecified atrial flutter (2) Diabetes Priority: Secondary Status: Acute Qualifiers: Diabetes mellitus type: type 2 Diabetes mellitus correction insulin use: without marine oil terminal superintendent use Diabetes mellitus complication status: with hyperglycemia Qualified Code(s): E11.65 - Type 2 diabetes mellitus with hyperglycemia (3) DVT prophylaxis Priority: Secondary Status: Acute (4) Weakness Priority: Secondary Status: Acute Hospital course: "Ms. Schaffer is a 77 year old female Patient presented to the ER with palpitations and feeling weak for 4 days. She says that she was diagnosed with atrial flutter a few months ago at that time was started on diltiazem. She takes 360 mg daily. She is also started on warfarin at that time for anticoagulation. She had gone to [place] with her family and spent some time on the beach. On the return trip she began having some palpitations and feeling weak. She did notify her printed circuit boards laminator to recommended she go to the emergency room for further workup." Patient presented with above presentation and had above ED course. TSH was 1.9, troponin negative. She was started on Cardizem drip and cardiology was consulted. She was started on her home Cardizem along with metoprolol 12.5 mg twice a day however she continued to remain in atrial flutter so she underwent cardioversion on 08/14 and converted to sinus rhythm. It was recommended for her to continue with beta suzi and calcium channel suzi. She is to continue with Coumadin last INR was 2 to follow-up with her Coumadin clinic for further adjustment of her dose. Cleared for discharge by the cardiology team. she did have lower extremity edema - lasix IV one dose provided and she was continued on her home lasix, BNP was 65 and CXR with no acute disease. Nursing staff aware to provide PCP and cardiology appointments. Discharge discussed with: patient, nurse, wardrobe image consultant - Time Spent with Patient Total time spent providing and/or coordinating discharge services: Time spent: Greater than 30 minutes (35) - Discharge Medications Prescriptions: New Metoprolol [Lopressor] 12.5 mg PO BID #30 tablet Continued Warfarin [Coumadin] 2.5 mg PO SUMOTUTHFRSA dilTIAZem HCl [Diltiazem 24Hr Cd] 360 mg PO DAILY Furosemide [Lasix] 20 mg PO DAILY Metformin HCl [Metformin ER Gastric] 500 mg PO 1800 Warfarin Sodium 3.75 mg PO WE Multivitamin [Multivitamins] 1 each PO DAILY Cholecalciferol (D-3) [Vitamin D] 5,000 unit PO SUWE Aspirin [Lo-Dose Aspirin EC] 81 mg PO DAILY Biotin 1 mg PO DAILY [place]-3/Dha/Epa/Fish Oil [Fish Oil Conc 1,000 mg Softgel] 1,000 mg PO DAILY Home Medications: Aspirin [Lo-Dose Aspirin EC] 81 mg PO DAILY 12/29/15 [History] Cholecalciferol (D-3) [Vitamin D] 5,000 unit PO SUWEFR 12/29/15 [History] Multivitamin [Multivitamins] 1 each PO DAILY 12/29/15 [History] Biotin 1 mg PO DAILY 05/17/18 [History] [place]-3/Dha/Epa/Fish Oil [Fish Oil Conc 1,000 mg Softgel] 1,000 mg PO DAILY 05/17/18 [History] Warfarin [Coumadin] 2.5 mg PO SUMOTUTHFRSA 05/28/18 [History] Furosemide [Lasix] 20 mg PO DAILY 08/13/18 [History] Metformin HCl [Metformin ER Gastric] 500 mg PO 1800 08/13/18 [History] Warfarin Sodium 3.75 mg PO WE 08/13/18 [History] dilTIAZem HCl [Diltiazem 24Hr Cd] 360 mg PO DAILY 08/13/18 [History] Metoprolol [Lopressor] 12.5 mg PO BID #30 tablet 08/14/18 [Rx] Allergies/Adverse Reactions: Allergy/AdvReac Type Severity Reaction Status Date / Time Sulfa (Sulfonamide Allergy See Verified 08/13/18 13:40 Antibiotics) Comments tape AdvReac Rash Uncoded 05/28/18 13:43 Date of admission: 08/13/18 15:29 Primary care physician: Purvi Rocha CNP Consults: 08/13/18 02:42 Consult to Cardiology [CONS] Routine Comment: Consulting Provider: [facility] [place] Reason for Consult: Atrial fibrillation/flutter. Notified from the emergency room. Call Completed: Yes - Constitutional Vitals: Temp Pulse Resp BP Pulse Ox 97.8 F 70 20 120/70 95 08/14/18 10:56 08/14/18 10:56 08/14/18 10:56 08/14/18 10:56 08/14/18 10:56 Exam: No acute distress, speaks in full sentences, obese regular rate and rhythm S1 and S2 could not appreciate any murmurs Clear To auscultation bilaterally Abdomen is obese, has hernia in the right lower abdomen, bowel sounds are positive, soft nontender edema of the lower extremities up to mid shins- improved axox3 no focal deficit - Patient Status Disposition: Home, Self-Care Condition: Fair Functional capacity at discharge: independent ambulation Overall status at discharge: patient is progressing back to baseline - Discharge Instructions Instructions: Metoprolol (By mouth), Atrial Flutter (DC), Diabetes Mellitus Type 2 in Adults (DC), Chronic Hypertension (DC) Follow Up With: Purvi Rocha CNP [Primary Care Provider] - 08/18/18 2:00 pm - Diet and Activity Activity: increase activity as tolerated Diet: diabetic diet, low salt diet
[2018-08-14 16:01] VITALS: BP 111/69
[2018-08-14] MEDS ORDERED: *HR* Warfarin 2.5 MG TABLET PO ONE (18:00)
--- NOTE | 2018-08-17 15:44 | Electrocardiograph Report ---
[place] [address] Test Date: 2018-08-14 Pat Name: Shyann Schaffer Department: 111 Room: 2NE31 Gender: F Gerontology Aide: : 1940 Requested By: Ryder Valle Order Number: [id number] Reading MD: Emanuel Brandt Measurements Intervals [place] Rate: 72 P: [place]: 0 QRS: 47 QRSD: 76 T: 76 QT: 402 QTc: 426 Interpretive Statements ATRIAL FLUTTER/TACHYCARDIA LOW QRS VOLTAGE IN PRECORDIAL LEADS [QRS DEFLECTION < 1.0 mV IN CHEST LEADS] SEPTAL MYOCARDIAL INFARCTION [40+ ms Q WAVE IN V1/V2], PROBABLY OLD Electronically Signed On 08-17-2018 15:42:38 EDT by Emanuel Brandt
--- NOTE | 2018-08-17 15:44 | Electrocardiograph Report ---
[address] [address] Test Date: 2018-08-14 Pat Name: Shyann Schaffer Department: 101 Room: 2NE31 Gender: F Medical Insurance Verifier: MORRO : 1940 Requested By: Ryder Valle Order Number: [id number] Reading MD: Emanuel Brandt Measurements Intervals [place] Rate: 79 P: 78 [place]: 194 QRS: 63 QRSD: 88 T: 67 QT: 366 QTc: 401 Interpretive Statements SINUS RHYTHM LEFT ATRIAL ENLARGEMENT LOW QRS VOLTAGE IN PRECORDIAL LEADS NONSPECIFIC T-WAVE ABNORMALITY Electronically Signed On 08-17-2018 15:42:50 EDT by Emanuel Brandt
== END 2018-08-14 16:56 | disposition home or self-care (01) | DRG 310 ==
LOC: EMEROOARM 16:06 → 2NENU 16:06
PROVIDERS: ADMIT Pediatrics; ATTEND Pediatrics

== ENCOUNTER 2021-01-16 12:07 | Inpatient (IN) ==
[2021-01-16] MEDS ORDERED: MOM Conc 10 ML UD.LIQ PO PRN (16:58)
[2021-01-16] MEDS ORDERED: Mag Hydrox/Al Hydrox/Simeth 30 ML UDC PO PRN (16:58)
[2021-01-16] MEDS ORDERED: Ondansetron ODT 4 MG TAB.RAPDIS SL PRN (16:58)
[2021-01-16] MEDS ORDERED: Naloxone 0.4 MG/ML INJ IVP PRN (16:58)
[2021-01-16] MEDS ORDERED: Melatonin 3 MG TABLET PO PRN (16:58)
[2021-01-16] MEDS ORDERED: Acetaminophen 325 MG TABLET PO PRN (17:01)
[2021-01-16] MEDS ORDERED: Perflutren Lipid Microsphere 1.3 ML in 0.9 % Sodium Chloride 8.7 ML IVP PRN (17:01)
[2021-01-16] MEDS ORDERED: Dextrose Gel 15 GM/37.5 ML TUBE PO PRN ×2 (17:24)
[2021-01-16] MEDS ORDERED: D5% in Water 1,000 ML IVC PRN (17:24)
[2021-01-16] MEDS ORDERED: *HR* Dextrose 50 % in Water (Syg) 50 ML SYRINGE IVP PRN (17:24)
[2021-01-16] MEDS: *HR* Rivaroxaban 10 MG TABLET PO SCH (20:33)
[2021-01-16] MEDS: Insulin LISPRO 300 UNITS/3 ML VIAL SUBQ SCH (20:34)
[2021-01-17 01:29] LABS: Hematocrit 44.4 % (35.3-44.9); Hemoglobin 14.1 g/dL (11.5-15.4); Mean Corpuscular HGB Conc 31.8 g/dL (31.6-35.5); Mean Corpuscular Hemoglobin 27.7 pg (28.0-33.3); Mean Corpuscular Volume 87.2 fL (83.0-100.0); Mean Platelet Volume 9.8 fL (9.4-12.4); Platelet Count 208 K/mcL (140-400); Red Blood Count 5.09 M/mcL (3.82-4.97); Red Cell Distribution Width 13.5 % (11.5-14.5); White Blood Count 10.2 K/mcL (4.3-11.1)
[2021-01-17 01:57] LABS: BUN/Creatinine Ratio 23 (6-26); Blood Urea Nitrogen 17 mg/dL (8-23); Calcium 8.8 mg/dL (8.6-10.3); Carbon Dioxide 22 mEq/L (23-29); Chloride 106 mEq/L (98-107); Glucose 111 mg/dL (70-105); Osmolality,Calculated 288 (280-300); Potassium 4.1 mEq/L (3.5-5.1); Sodium 138 mEq/L (136-145); eGFR For African Americans > 60 (> 60); eGFR For Non-African Americans > 60 (> 60)
[2021-01-17 02:24] LABS: Estimated Average Glucose 163 mg/dl; Hemoglobin A1C 7.3 %
[2021-01-17] MEDS ORDERED: Regadenoson 0.4 MG/5 ML SYRINGE IVP ONE (06:49)
[2021-01-17] MEDS: Insulin LISPRO 300 UNITS/3 ML VIAL SUBQ SCH ×4 (07:10→20:41)
[2021-01-17] MEDS: Aspirin Enteric Coated 81 MG Tablet PO SCH (08:58)
[2021-01-17] MEDS: DilTIAZem CD (24hr) 180 MG CAP.ER.24H PO SCH (08:58)
[2021-01-17] MEDS ORDERED: Nitroglycerin 0.4 MG TAB.SUBL SL PRN (10:31)
[2021-01-17] MEDS ORDERED: *HR* FentaNYL (PF) 100 MCG/2 ML VIAL ONE ×2 (13:13→15:11)
[2021-01-17] MEDS ORDERED: *HR* Midazolam HCl 2 MG/2 ML VIAL ONE ×2 (13:14→15:11)
[2021-01-17] MEDS ORDERED: *HR* Heparin 10,000 UNIT/10 ML VIAL ONE (13:14)
[2021-01-17] MEDS ORDERED: ISOVUE-370 200 ML INFUS..BTL ONE (13:14)
[2021-01-17] MEDS ORDERED: 0.9 % Sodium Chloride 1,000 ML ONE (13:14)
[2021-01-17] MEDS ORDERED: Heparin 1,000 UNITS/500 mL 500 ML ONE (13:14)
[2021-01-17] MEDS ORDERED: Nitroglycerin 1,000 MCG/5 ML VIAL IV ONE (13:15)
[2021-01-17] MEDS ORDERED: *HR* Rivaroxaban 10 MG TABLET PO SCH (17:00)
[2021-01-17] MEDS: *HR* Rivaroxaban 10 MG TABLET PO SCH (20:41)
[2021-01-18 01:19] LABS: Basophils % 0.3 %; Eosinophils # 0.1 K/mcL (0.0-0.6); Eosinophils % 1.3 %; Hematocrit 45.1 % (35.3-44.9); Hemoglobin 14.6 g/dL (11.5-15.4); Immature Granulocytes % 0.3 % (0-4); Lymphocytes # 2.6 K/mcL (0.6-4.6); Lymphocytes % 25.4 %; Mean Corpuscular HGB Conc 32.4 g/dL (31.6-35.5); Mean Corpuscular Hemoglobin 28.1 pg (28.0-33.3); Mean Corpuscular Volume 86.9 fL (83.0-100.0); Mean Platelet Volume 9.8 fL (9.4-12.4); Monocytes # 0.9 K/mcL (0.0-1.3); Monocytes % 8.7 %; Neutrophils # 6.5 K/mcL (1.6-8.9); Platelet Count 216 K/mcL (140-400); Red Blood Count 5.19 M/mcL (3.82-4.97); Red Cell Distribution Width 13.3 % (11.5-14.5); White Blood Count 10.2 K/mcL (4.3-11.1)
[2021-01-18 01:36] LABS: BUN/Creatinine Ratio 20 (6-26); Blood Urea Nitrogen 15 mg/dL (8-23); Calcium 8.8 mg/dL (8.6-10.3); Carbon Dioxide 23 mEq/L (23-29); Chloride 104 mEq/L (98-107); Glucose 123 mg/dL (70-105); Magnesium 1.9 mg/dL (1.6-2.6); Osmolality,Calculated 280 (280-300); Phosphorous 3.3 mg/dL (2.7-4.5); Potassium 3.8 mEq/L (3.5-5.1); Sodium 134 mEq/L (136-145); eGFR For African Americans > 60 (> 60); eGFR For Non-African Americans > 60 (> 60)
[2021-01-18 07:18] VITALS: BP 116/75; PULSE 75; TEMP 97.7; O2SAT 94
[2021-01-18] MEDS: DilTIAZem CD (24hr) 180 MG CAP.ER.24H PO SCH (07:52)
[2021-01-18] MEDS: Aspirin Enteric Coated 81 MG Tablet PO SCH (07:52)
[2021-01-18] MEDS: Insulin LISPRO 300 UNITS/3 ML VIAL SUBQ SCH (07:54)
== END 2021-01-18 11:59 | disposition home or self-care (01) | DRG 247 ==
LOC: 3BNU
PROVIDERS: ADMIT Pharmacist; ATTEND Pharmacist